=== PATIENT | female | born 1965 | race Caucasian/White ===

== ENCOUNTER 2023-12-29 09:40 | Inpatient (IN) ==
[2023-12-29 11:07] LABS: ABS Basophils 0.1 10^3/uL (0.0-0.1); ABS Eosinophils 0.1 10^3/uL (0.0-0.5); ABS Lymphocytes 1.4 10^3/uL (1.0-4.8); ABS Monocytes 0.5 10^3/uL (0.0-0.9); ABS Neutrophils 4.4 10^3/uL (1.5-7.6); ABS Nucleated RBC 0.01 10^3/ul; Eosinophil % 1.3 %; Hemoglobin 14.1 g/dL (11.5-14.3); Lymphocyte % 22.5 %; Mean Corpuscular Hgb Conc 32.9 g/dL (31-36); Mean Corpuscular Volume 100.4 fL (80-97); Mean Platelet Volume 8.1 fL (7.5-11.2); Nucleated Red Blood Cells % 0.2 %/100WBC (0.0-0.8); Platelet Count 176 10^3/uL (150-450); Red Blood Count 4.28 10^6/uL (3.63-4.92); Red Cell Distribution Width 14.6 % (12-17); White Blood Count 6.4 10^3/uL (3.8-11.8)
[2023-12-29 11:19] LABS: High Sens Troponin Baseline 33 pg/mL (<15)
[2023-12-29 11:23] LABS: INR 2.78 (0.83-1.13)
[2023-12-29 11:58] LABS: ALT 41 U/L (7-52); Albumin 3.8 g/dL (3.2-5.2); Albumin/Globulin Ratio 1.5 (1-3); Alkaline Phosphatase 184 U/L (35-149); Anion Gap 8 mmol/L (2-16); Blood Urea Nitrogen 14 mg/dL (6-24); C Reactive Protein 3.48 mg/L (<8.01); CO2 Carbon Dioxide 29 mmol/L (22-32); Calcium 9.8 mg/dL (8.6-10.3); Chloride 106 mmol/L (101-111); Creatinine, Serum 0.65 mg/dL (0.51-0.95); Globulin 2.5 g/dL (2-4); Glucose 90 mg/dL (70-100); Sodium 143 mmol/L (135-145); Total Bilirubin 0.9 mg/dL (0.2-1.0); Total Protein 6.3 g/dL (6.4-8.9); eGFR CKD-EPI 100.7 (>60)
[2023-12-29] MEDS ORDERED: Nystatin TOP POWDER 15 GM BTL TOPICAL PRN (12:07)
[2023-12-29 13:00] LABS: Potassium Redraw 3.3 mmol/L (3.5-5.0)
[2023-12-29] MEDS ORDERED: Warfarin per PHARMACY **NOTE FOLLOW UP SCH ×2 (13:00→14:26)
[2023-12-29 13:39] LABS: Magnesium 1.8 mg/dL (1.9-2.7)
[2023-12-29] MEDS: KCL 20 MEQ/100 ML IVPREMIX 20 MEQ/100 ML BAG IV SCH ×2 (14:35→17:58)
[2023-12-29] MEDS: Dextran 70/Hypromellose Tears Eye Drops 15 ml BTL (for Artificials Tears) BOTH EYES SCH (14:36)
[2023-12-29] MEDS: Cholecalciferol (VIT D3) 1,000 unit TAB PO SCH (14:36)
[2023-12-29] MEDS: Calcium/Vitamin D TAB 250/125 TAB PO SCH (14:38)
[2023-12-29] MEDS ORDERED: Warfarin DAILY REMINDER **NOTE FOLLOW UP SCH (17:00)
[2023-12-29] MEDS: Furosemide 40 mg/4 ml IV VIAL IV SLOW PU SCH (17:59)
[2023-12-29] MEDS: Enoxaparin 100 MG/ML SYR SUBCUT SCH (17:59)
[2023-12-29] MEDS: Potassium Chlor 20 meq TAB.ER PO ONE (18:12)
[2023-12-29 18:49] LABS: TSH Ultra Thyroid Stim Horm 1.09 mcIU/mL (0.34-5.60)
[2023-12-29 18:51] LABS: Free T3 4.14 pg/mL (2.5-3.9); Free T4 1.27 ng/dL (0.61-1.12)
[2023-12-29 18:56] LABS: Ferritin 42.3 ng/mL (11-307)
[2023-12-29 19:31] LABS: High Sensitivity Troponin 1 Hr 33 pg/mL (<15)
[2023-12-29 20:27] LABS: .Transferrin 330 mg/dL (203-362); Total Iron Binding Capacity 462 mcg/dL (250-450)
[2023-12-29] MEDS: FLUORIDE PO SCH (21:25)
[2023-12-29 22:11] LABS: % Iron Saturation 24 % (15-55); .Transferrin 361 mg/dL (203-362); Iron 123 ug/dL (50-212); Total Iron Binding Capacity 505 mcg/dL (250-450); Unsaturated Iron Binding 382 ug/dL
[2023-12-30] MEDS: Sulfur Hexaflouride MICROSPHR 25 MG VIAL IV ONE (05:10)
[2023-12-30 06:24] LABS: ABS Eosinophils 0.1 10^3/uL (0.0-0.5); ABS Lymphocytes 1.4 10^3/uL (1.0-4.8); ABS Monocytes 0.6 10^3/uL (0.0-0.9); ABS Neutrophils 3.6 10^3/uL (1.5-7.6); ABS Nucleated RBC 0.01 10^3/ul; Eosinophil % 1.4 %; Hematocrit 41.7 % (35-45); Lymphocyte % 24.6 %; Mean Corpuscular Hemoglobin 33.5 pg (27-33); Mean Corpuscular Hgb Conc 33.5 g/dL (31-36); Mean Corpuscular Volume 100.1 fL (80-97); Mean Platelet Volume 7.6 fL (7.5-11.2); Nucleated Red Blood Cells % 0.3 %/100WBC (0.0-0.8); Platelet Count 144 10^3/uL (150-450); Red Blood Count 4.16 10^6/uL (3.63-4.92); Red Cell Distribution Width 14.5 % (12-17); White Blood Count 5.8 10^3/uL (3.8-11.8)
[2023-12-30 08:50] LABS: Calcium 9.5 mg/dL (8.6-10.3); Creatinine, Serum 0.67 mg/dL (0.51-0.95); Magnesium 2.2 mg/dL (1.9-2.7); Potassium 4.1 mmol/L (3.5-5.0)
[2023-12-30] MEDS: Polyethylene Glycol 3350 17 GM PACKET PO SCH (08:51)
[2023-12-30] MEDS: COVID VAC 23-24(12+)(Moderna) SYR 0.5 ML IM ONE (09:03)
[2023-12-31 09:07] LABS: Hemoglobin 15.2 g/dL (11.5-14.3); Mean Corpuscular Hemoglobin 33.5 pg (27-33); Mean Corpuscular Hgb Conc 33.7 g/dL (31-36); Mean Corpuscular Volume 99.4 fL (80-97); Mean Platelet Volume 7.8 fL (7.5-11.2); Platelet Count 196 10^3/uL (150-450); Red Blood Count 4.53 10^6/uL (3.63-4.92); Red Cell Distribution Width 14.3 % (12-17); White Blood Count 5.4 10^3/uL (3.8-11.8)
[2023-12-31 09:44] LABS: Calcium 10.1 mg/dL (8.6-10.3); Creatinine, Serum 0.69 mg/dL (0.51-0.95); Magnesium 2.2 mg/dL (1.9-2.7); Potassium 4.1 mmol/L (3.5-5.0); eGFR CKD-EPI 99.3 (>60)
[2023-12-31] MEDS: Furosemide 40 mg/4 ml IV VIAL IV SLOW PU ONE (12:27)
[2024-01-01 06:10] LABS: Hemoglobin 14.6 g/dL (11.5-14.3); Mean Corpuscular Hemoglobin 33.6 pg (27-33); Mean Corpuscular Volume 98.6 fL (80-97); Mean Platelet Volume 7.7 fL (7.5-11.2); Platelet Count 159 10^3/uL (150-450); Red Blood Count 4.36 10^6/uL (3.63-4.92); Red Cell Distribution Width 14.6 % (12-17); White Blood Count 4.6 10^3/uL (3.8-11.8)
[2024-01-01 06:39] LABS: Calcium 9.7 mg/dL (8.6-10.3); Creatinine, Serum 0.71 mg/dL (0.51-0.95); Magnesium 2.2 mg/dL (1.9-2.7); Potassium 3.8 mmol/L (3.5-5.0); eGFR CKD-EPI 97.3 (>60)
[2024-01-01] MEDS: KCL 20 MEQ/100 ML IVPREMIX 20 MEQ/100 ML BAG IV ONE (07:38)
[2024-01-01] MEDS ORDERED: Regadenoson 0.4 MG/5 ML SYRINGE ONE (11:13)
[2024-01-01 14:17] VITALS: BP 124/76
== END 2024-01-01 16:39 | disposition home or self-care (01) | DRG 313 ==
LOC: ED 09:40 → SUATTDRO 10:27 → EDHOLD 10:27 → MEDTELE 19:57
PROVIDERS: ADMIT Internal Medicine; ATTEND Family Medicine